=== PATIENT | female | born 1950 | race Caucasian/White ===

== ENCOUNTER 2018-04-23 12:49 | Inpatient (IN) | payer MEDICARE ==
[~2018-04-23] VITALS: Ht 157.5 cm; Wt 106.6 kg
--- NOTE | ~2018-04-23 | D ---
[facility] [address] [place] [address] DISCHARGE SUMMARY Name: BERNYLUAN DOUGIE Room: [address] IN .R.#: [id number] Admission: 04/23/18 Attend Phys: Kitty Camara DO Discharge: Date of : 50 Report #: [id number] THIS REPORT FOR: //name// CC: Antoine Camara DATE OF SERVICE: 05/02/2018 Fracture of the right femur with known metastatic cancerous process. SUBJECTIVE: This is a 67-year-old female who was admitted to inpatient rehabilitation to facilitate safe discharge home, status post right femur fracture with known cancerous process and metastatic cancer who did well, progressed to a modified independent level of function prior to discharge home. MEDICATIONS: Reviewed and reconciled by myself. FOLLOWUP: Primary care physician within one week. Oncology, [facility] as previously scheduled. Notifications for physician were given. DIET: Regular diet. Fall precautions, front-wheeled walker for ambulation and weightbearing as tolerated on right lower extremity. DISCHARGE PHYSICAL EXAMINATION: GENERAL: Alert, oriented, no apparent distress. VITAL SIGNS: Reviewed and are stable. HEENT: Head atraumatic, normocephalic. Pupils equal, round, reactive. ABDOMEN: Soft, nontender, nondistended. NEUROLOGIC: Cranial nerves 2-12 are grossly intact. No focal neuro deficits, 5/5 strength in bilateral upper and lower extremities. SKIN: Warm, dry. No rashes or lesions noted. By: [id number] Camara DO /roberto
--- NOTE | ~2018-04-23 | H ---
[place] [address] HISTORY AND PHYSICAL Name: LUAN ARRIETA Room: [address] IN ..#: [id number] Admission: 04/23/18 Attend Phys: Kitty Camara DO Discharge: Date of : 50 Report #: [id number] THIS REPORT FOR: //name// CC: Antoine Camara DATE OF SERVICE: 04/23/2018 [facility] CODE: 8.9. HISTORY OF PRESENT ILLNESS: This is a 67-year-old female admitted to inpatient rehabilitation to facilitate safe discharge home, status post acute hospitalization due to a right femur fracture, onset 04/18/2018, with surgical date 04/18/2018. She had a pathological right distal femur fracture, status post ORIF, with poor results and recurrent right distal femur fracture post-radical resection of the right distal femur due to pain and nonunion. The distal femur replacement with a prosthetic was completed on 04/18/2018. She was previously living at home with family members, modified independent to independent with ADLs, mobility was modified independent. Multiple medical comorbidities. No significant changes since preadmission screening. Previous level of function was modified independent to independent with activities of daily living. Current level of function is minimum to moderate assistance of one depending on therapy, activity and time of day, if she is ambulating 2 feet with front-wheeled walker. Decreased heel strike, weightbearing as tolerated on the right lower extremity. Estimated length of stay is 12-14 days, with discharge disposition to the home setting where she has family including her [id number] that can help her. Again, no significant changes since preadmission screening. PAST MEDICAL HISTORY: Bone lesion, hypothyroid, bone metastasis, anemia with a hemoglobin of 7.2. Hip fracture, post ORIF, with revision. Right femur fracture, liver metastasis, hypertension, neuropathy, bilateral lower extremity. Nonpolyposis, colorectal cancer, small cell cancer, neoplasm of the uterus, arthritis. PAST SURGICAL HISTORY: Hip fracture and right distal femur ORIF. ALLERGIES: SULFA, LATEX, CODEINE, GABAPENTIN. Weightbearing as tolerated on right lower extremity. FAMILY HISTORY: [place] [address] HISTORY AND PHYSICAL Name: LUAN ARRIETA Room: [address] IN [facility].#: [id number] Admission: 04/23/18 Attend Phys: Kitty Camara DO Discharge: Date of : 50 Report #: [id number] SOCIAL HISTORY: No tobacco, alcohol or illicit drug use. REVIEW OF SYSTEMS: 14-point review of systems is done and is negative except as mentioned in HPI, specifically no fever, chest pain, shortness of breath, abdominal pain or distention, change in bowel or change in bladder. PHYSICAL EXAMINATION: GENERAL: Alert, oriented, in no apparent distress. VITAL SIGNS: Reviewed and are stable. She is up in the chair, eating lunch. She does have family in the room. HEENT: Head atraumatic, normocephalic. Pupils equal, round, reactive. ABDOMEN: Soft, nontender, nondistended. NEUROLOGIC: Cranial nerves 2-12 are grossly intact. No focal neuro deficits, 5/5 strength in bilateral upper and lower extremities. SKIN: Warm and dry. No rashes or lesions noted. ASSESSMENT: 1. Right femur fracture, status post resection and revision, open reduction internal fixation of the distal femur on 04/18/2018. 2. Bilateral lower extremity neuropathy. 3. Multiple cancers including bone metastasis. 4. Alterations in activities of daily living, requiring acute therapies. PLAN: 1. Admission to inpatient rehabilitation. 2. PT, OT, speech, language, case management, nursing and HIMS to make evaluations and recommendations. 3. Plan of care is pending, and we will team her weekly. 4. Weightbearing as tolerated, right lower extremity. We will also investigate if she needs a CPM. By: [id number] Camara DO /roberto
--- NOTE | ~2018-04-23 | PLAN ---
[address] [address] REHAB UNIT PLAN OF CARE Name: BERNYLUAN DOUGIE Room: [address] IN ..#: [id number] Admission: 04/23/18 Attend Phys: Kitty Camara, DO Discharge: Date of : 50 Report #: [id number] THIS REPORT FOR: //name// CC: Antoine Camara This is a 67-year-old female admitted to inpatient rehabilitation to facilitate safe discharge home, status post acute hospitalization on 04/18/2018 for resection and revision of a right distal femur fracture due to pain and nonunion of a distal femur replacement and prosthesis on 04/18/2018. She is weightbearing as tolerated on the right lower extremity, unsure at this time if she is going to utilize the CPM for range of motion, multiple medical comorbidities requiring acute daily medical care as well as intensive therapies. MEDICAL PROGNOSIS: Good. REHABILITATION PROGNOSIS: Good. Estimated length of stay is 10-12 days with discharge disposition to the home setting where she has supportive family, accessible house and a [id number] that can provide around the clock care. Previous level of function, modified independent to independent with ADLs. Current level of function is modified independent to min assistance of one depending on therapy, activity and time of day. Ambulation is about 2 feet, slow decreased heel strike. Physical Therapy will see the patient 60-90 minutes per day, 5 days per week, working on upper and lower body strength, balance, coordination, navigation. Occupational Therapy will work with the patient 60-90 minutes per day, 5 days per week, working on upper and lower body strength, balance, coordination, navigation, bathing, dressing, and toileting. Speech and Language Pathology will work with the patient 30-90 minutes per day, 5 days per week, working on cognition, memory strategies for executive function. This is an overall plan of care, may change from time to time. We will team weekly and make changes to plan. By: [id number] Camara DO /roberto
[2018-04-23] MEDS ORDERED: COLACE100 MG PO (13:47)
[2018-04-23] MEDS ORDERED: OXYCODONE HCL15 MG PO (13:50)
[2018-04-23] MEDS ORDERED: ASPIR 8181 MG PO (13:51)
[2018-04-23] MEDS ORDERED: TYLENOL EXTRA500 MG PO (13:52)
[2018-04-23] MEDS ORDERED: VITAMIN D2000 UNIT PO (13:53)
[2018-04-23] MEDS ORDERED: AMITRIPTYLINE H25 M2 PO (13:53)
[2018-04-23] MEDS ORDERED: ALLERGY RELIEF180 MG PO (13:54)
[2018-04-23] MEDS ORDERED: PROBIOTIC1 EAC1 PO (13:55)
[2018-04-23] MEDS ORDERED: SYNTHROID50 MCG PO (13:56)
[2018-04-23] MEDS ORDERED: OMEPRAZOLE 20 M20 M1 PO (13:57)
[2018-04-23] MEDS ORDERED: MIRALAX17 GM PO (14:00)
[2018-04-23] MEDS ORDERED: UNICOMPLEX M TA1 TA1 PO (14:02)
[2018-04-23] MEDS ORDERED: B COMPLEX1 EACH PO (14:02)
[2018-04-23 19:30] VITALS: BP 147/64
[2018-04-23] MEDS ORDERED: MORPHINE SULFAT15 M3 PO (19:43)
[2018-04-23] MEDS ORDERED: ALLEGRA ALLERG180 MG PO (19:47)
--- NOTE | 2018-04-24 03:09 | NUR ---
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
[2018-04-24 04:32] LABS: HEMATOCRIT 24.3 % (37.0-47.0); HEMOGLOBIN 8.4 gm/dL (12.0-15.0); MCH 32.8 pg (26.0-34.0); MCHC 34.5 g/dL (28.0-37.0); MCV 95.1 fL (80.0-100.0); MPV 8.4 fl. (7.2-11.1); RBC 2.56 mil/uL (4.20-5.00); RDW-CV 15.9 % (10.5-14.5); WBC 3.6 thou/uL (4.0-11.0)
[2018-04-24 04:42] LABS: CALCIUM 8.6 mg/dL (8.5-10.1); POTASSIUM 3.8 mmol/L (3.5-5.1)
--- NOTE | 2018-04-24 05:21 | NUR ---
SLEEPING SINCE 0000-04/24-SUN.SLEPT GOOD ALL NIGHT.TOOK ALL DRY CEREAL [facility]ERRIOS HS SNACK.BRP X1.USED BSC X2.ASSIST TO LIFT RIGHT LE INTO & OUT OF BED DURING TRANSFERS.
[2018-04-24 08:19] VITALS: BP 124/58
--- NOTE | 2018-04-24 10:42 | NUR ---
Nutrition: Consult received for new admit. Pt on regular diet, unsure of po intake today. MVI, probiotic. Admitted with Rt distal femur FX. Wt: 237#. Consider Low risk at this time. Will follow weekly for po intake, wt, labs.
--- NOTE | 2018-04-24 16:39 | NUR ---
SW, Dr Camara and med student Sander met with pt to review team conference summary and plan for pt to remain on rehab unit for another week with plan to reteam next Sunday. SW met again with pt to complete initial assessment, introduce self, and SW role on inpt rehab unit. Pt lives with her brother in law and has his support 25/09 if needed however pt is hopeful to be more independent at dc. Pt has grab bars, standard RW and a rollator. Pt has hx with services but does not recall the name of the agency. Pt did not have any questions or concerns at this time. SW to continue to follow to assist with safe dc planning.
--- NOTE | 2018-04-24 19:03 | NUR ---
PT ALERT AND ORIENTED X 4. RECEIVED MORPHINE AND TYLENOL FOR RIGHT LEG PAIN. DRESSING ON RIGHT LEG- C/D/I. PARTICIPATED WITH THERAPIES DURING DAY. UP WITH ASSIST X 1 WITH WALKER AND GAIT BELT. HOURLY ROUNDS MAINTAINED. DIET CHANGED TO MECHANICAL SOFT/ GROUND DIET. CALL LIGHT WITH WITHIN REACH.
[2018-04-24 19:24] VITALS: BP 126/59
[2018-04-25 04:25] LABS: HEMATOCRIT 24.8 % (37.0-47.0); HEMOGLOBIN 8.5 gm/dL (12.0-15.0); MCH 32.8 pg (26.0-34.0); MCHC 34.3 g/dL (28.0-37.0); MCV 95.6 fL (80.0-100.0); MPV 8.3 fl. (7.2-11.1); RBC 2.59 mil/uL (4.20-5.00); RDW-CV 15.9 % (10.5-14.5); WBC 3.9 thou/uL (4.0-11.0)
[2018-04-25 04:42] LABS: APTT 29.7 Seconds (25.0-31.3); INR 0.9; PROTIME 9.4 Seconds (9.20-11.50)
[2018-04-25 04:44] LABS: ALBUMIN 2.8 g/dL (3.4-5.0); CALCIUM 8.6 mg/dL (8.5-10.1); CREATININE 0.9 mg/dL (0.6-1.3); POTASSIUM 3.8 mmol/L (3.5-5.1); TOTAL BILIRUBIN 0.3 mg/dL (<0.1-1.0); TOTAL PROTEIN 6.5 g/dL (6.4-8.2)
--- NOTE | 2018-04-25 05:11 | NUR ---
ASSUMED PT CARE AT 1930. PT ALERT AND ORIENTED X4, POLITE AND COOPERATIVE WITH CARES. S/P RADICAL RESECTION AND REPLACEMENT OF RIGHT DISTAL PROSTHESIS. PT UP WITH ONE, GAIT BELT AND WALKER TO [facility] TO VOID. PT NEEDS ASSIST LIFTING RIGHT LEG INTO BED. WBAT TO RLE. PRN TYLENOL, MORPHINE AND ELAVIL AT HS PER PT REQUEST. BED ALARM ON FOR SAFETY. WEARS ONLY LEFT SCD. PT SLEPT WELL OVERNIGHT. NO S/S PAIN OR DISTRESS. USES CALL LIGHT APPROPRIATELY. CALL LIGHT AND FREQUENTLY USED ITEMS WITHIN REACH. HOURLY ROUNDING IN PROGRESS, WILL CONTINUE TO MONITOR.
[2018-04-25 08:00] VITALS: BP 125/59
--- NOTE | 2018-04-25 19:36 | NUR ---
I ASSUMED CARE OF THE PATIENT AT 0700. SHE IS ALERT AND ORIENTED X4 AND IS UP WITH ONE AND A WALKER/GB. HOURLY ROUNDING WAS COMPLETED AND PATIENT NEEDS ARE MET. PAIN IS MANAGED WITH PRN MEDS. HER PORT A CATH WAS ACCESSED TO INFUSE IV IRON. BED IS IN THE LOW LOCKED POSITION AND CALL LIGHT IS IN REACH. BED ALARM AND CHAIR ALARM ARE ON. WILL CONTINUE TO MONITOR.
[2018-04-25 20:23] VITALS: BP 128/55
--- NOTE | 2018-04-26 05:38 | NUR ---
ASSUMED PT CARE AT 1930. PT ALERT AND ORIENTED X4, POLIE AND COOPERATIVE WITH CARES. S/P RADICAL RESECTION AND REPLACEMENT OF RIGHT DISTAL PROSTHESIS. DRESSING TO RIGHT LEG C/D/I. PT UP WITH ONE, GAIT BELT AND WALKER TO [facility] TO VOID. PT NEEDS ASSIST LIFTING RIGHT LEG INTO BED. WBAT TO RLE. PRN TYLENOL AND MORPHINE FOR PAIN. BED ALARM ON FOR SAFETY. WEARS ONLY LEFT SCD. SLEPT WELL OVERNIGHT. USES CALL LIGHT APPROPRIATELY. CALL LIGHT AND FREQUENTLY USED ITEMS WITHIN REACH, HOURLY ROUNDING IN PROGRESS, WILL CONTINUE TO MONITOR.
[2018-04-26 11:11] VITALS: BP 122/63
--- NOTE | 2018-04-26 16:07 | NUR ---
PATIENT AMBULATING IN HALLWAY EARLIER WITH THERAPY. BM THIS AFTERNOON. PAIN MEDS ORDERED. NO FURTHER COMPLAINTS.
[2018-04-26 20:00] VITALS: BP 115/54
--- NOTE | 2018-04-27 05:35 | NUR ---
ASSUMED PT CARE AT 1930. PT ALERT AND ORIENTED X4, POLITE AND COOPERATIVE WITH CARES. DRESSING TO RIGHT LEG C/D/I. PT UP WITH ONE, GAIT BELT AND WALKER TO BS TO VOID. PT NEEDS ASSIST LIFTING RIGHT LEG INTO BED. WBAT TO RLE. PRN TYLENOL AND MORPHINE FOR PAIN. BED ALARM ON FOR SAFETY. WEARS ONLY LEFT SCD. SLEPT WELL OVERNIGHT. PORT FLUSHED WITHOUT DIFFICULTY. USES CALL LIGHT APPROPRIATELY. CALL LIGHT AND FREQUENTLY USED ITEMS WITHIN REACH. HOURLY ROUNDING IN PROGRESS, WILL CONTINUE TO MONITOR.
[2018-04-27 08:06] VITALS: BP 122/60
--- NOTE | 2018-04-27 18:46 | NUR ---
PT VSS THIS SHIFT. PT TOLERATING DIET, RA, AND PAIN CONTROL THIS SHIFT. PT UP WITH 1 THIS SHIFT. PT TOLERATED IRON INFUSION THROUGH PORT WITH BLOOD RETURN PATENT THIS SHIFT. PT PORT DEACCESSED THIS SHIFT WITH NO COMPLICATIONS THIS SHIFT, HEPARIN PLACED IN PORT PRIOR TO DEACCESSING. PT ABOUT TO AMBULATE WITH ASSIST OF 1 WITH GAIT BELT AND WALKER. NO LABS DRAWN THIS SHIFT. NO BM THIS SHIFT.
--- NOTE | 2018-04-27 20:50 | NUR ---
RESTING QUIETLY IN BED AND WATCHING TV. DENIES DISCOMFORT. TOOK MEDICATIONS WHOLE WITH WATER. SNACK PROVIDED. DRESSING OVER PORT SITE ON RIGHT CHEST DRY/INTACT. PORT WAS DEACCESSED ON DAY SHIFT.
[2018-04-27 20:52] VITALS: BP 135/67
--- NOTE | 2018-04-28 05:41 | NUR ---
UP X ONE TO THE BATHROOM TO VOID. AMBULATES WITH SBA, GAITBELT, WALKER. DOES OWN HYGIENE AND CLOTHING ADJUSTMENTS. GAVE TYLENOL AND MORPHINE SULFATE AT 0130 PER REQUEST AT 0130 FOR COMPLAINT OF RIGHT LEG AND RIGHT KNEE PAIN WITH RELIEF. HOURLY ROUNDING IN PROGRESS.
[2018-04-28 08:36] VITALS: BP 120/60
--- NOTE | 2018-04-28 16:52 | NUR ---
PATIENT HAS BEEN AMBULATING WITH SUPERVISION IN ROOM AND TO MAIN DINNING AREA. LARGE BM TODAY. REQUESTED TO TAKE MIRLAX TWICE DAILY DUE TO HARD STOOL. DENIES ANY COMPLAINTS OF PAIN OR DISCOMFORT. ON ROOM AIR, LUNGS CTA. CONT. WITH PLAN OF CARE.
[2018-04-28 19:45] VITALS: BP 124/52
--- NOTE | 2018-04-28 20:10 | NUR ---
SITTING UP IN BED PLAYING SOLATAIRE. AMBULATED TO THE BATHROOM WITH SBA, GAITBELT, WALKER. DID OWN HYGIENE AND CLOTHING ADJUSTMENTS. PAIN MEDICATION GIVEN PER REQUEST FOR COMPLAINT IN PAIN IN BOTH KNEES AND RIGHT LEG. SNACK PROVIDED.
--- NOTE | 2018-04-29 06:04 | NUR ---
RESTED QUIETLY. NO FURTHER COMPLALINT OF PAIN. UP X ONE DURING THE NIGHT TO THE BATHROOM TO VOID. HOURLY ROUNDING IN PROGRESS.
[2018-04-29 08:20] VITALS: BP 131/62
[2018-04-29 19:45] VITALS: BP 120/53
--- NOTE | 2018-04-29 20:30 | NUR ---
AWAKENED FOR REASSESSMENT AND MEDICATION PASS. INITIALLY DENIED NEED FOR MEDICATION. AFTER RETURNING TO BED FROM AMBULATING TO THE BATHROOM AND BACK ASKED FOR PAIN MEDICATION RATED "5" IN RIGHT KNEE AND RIGHT LEG. AMBULATES WITH SBA, GAITBELT, WALKER. TOOK MEDICATIONS WHOLE WITH WATER. PAIN MEDICATION GIVEN PER REQUEST.
--- NOTE | 2018-04-30 05:20 | NUR ---
RESTED ON/OFF. INFORMED PATIENT OF PRN MELATONIN BUT PATIENT DECLINED STATING SHE WOULD BE ABLE TO GET BACK TO SLEEP. UP X ONE DURING THE NIGHT TO THE BATHROOM TO VOID. NO FURTHER COMPLAINT OF PAIN. HOURLY ROUNDING IN PROGRESS.
[2018-04-30 08:00] VITALS: BP 119/53
--- NOTE | 2018-04-30 15:22 | NUR ---
PT HAS PARTICIPATED WITH THERAPIES AND CALLS FOR ASSIST WITH AMBULATION. PT AMBULATES WITH WALKER,GAITBELT AND MIN ASSIST OF 1.PRN FOR PAIN GIVEN WITH GOOD EFFECT. PT HAS 2+ EDEMA TO RT.LEG BUT KEEPS LEG ELEVATED WHEN NOT WITH THERAPIES. DRESSING REMOVED TODAY WITH INCISION DRY AND INTACT WITH GLUE PRESENT.SKIN AROUND INCISION CLEANSED WITH WOUND CLEANSER FOR RELIEF OF MILD ITCHING.PT REPORTS VOIDING WELL AND HAVING BM WITHOUT PROBLEM.PT REMAINS ALERT AND ORIENTATED. HOURLY ROUNDING CONTINUES.
[2018-04-30 20:00] VITALS: BP 113/54
--- NOTE | 2018-05-01 01:48 | NUR ---
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
[2018-05-01 03:51] LABS: HEMATOCRIT 22.9 % (37.0-47.0); HEMOGLOBIN 7.9 gm/dL (12.0-15.0); MCHC 34.5 g/dL (28.0-37.0); MCV 95.5 fL (80.0-100.0); MPV 8.1 fl. (7.2-11.1); RBC 2.4 mil/uL (4.20-5.00); WBC 3.7 thou/uL (4.0-11.0)
[2018-05-01 04:06] LABS: CALCIUM 8.7 mg/dL (8.5-10.1)
--- NOTE | 2018-05-01 05:30 | NUR ---
SLEEPING SINCE 2224 & SLEPT GOOD ALL NIGHT.BRP W/ SBA X3.REFUSED HS SNACK.
[2018-05-01 07:30] VITALS: BP 121/51
--- NOTE | 2018-05-01 14:50 | NUR ---
SW and med student met with pt to review team conference summary and plan for pt to dc home with brother in law on Sunday. SW explained team discussed pt to be mod I in room and/or Sunday. Team recommending HH vs OP follow up at dc. Pt in agreement with plan. SW to continue to follow to assist with safe dc planning.
--- NOTE | 2018-05-01 18:58 | NUR ---
ASSUMED PT CARE REPORT RECEIVED FORM NURSE. PT IS ALLYSON COMAPLAINS OF PAIN. PAIN MEDICINE MARTIN. WORKED WITH PT/OT. OUT OF BED TO CHAIR WITH WALKER AND GAIT BELT. MEDS GIVEN,. PT REQUESTED THAT MIRALAX BE HELD UNTIL LATER TODAY. MIRALX GIVEN AT 1800. PT NOW IN CHAIR CALL LIGHT AT REACH. FIM DONE WILL CONTINUE TO MONITOR
[2018-05-01 20:31] VITALS: BP 108/49
--- NOTE | 2018-05-01 22:00 | NUR ---
SITTING UP IN BED AND PLAYING SOLATAIRE ON HOME COMPUTER. PAIN MEDICATION GIVEN PER REQUEST FOR COMPLAINT OF PAIN IN RIGHT KNEE AND RIGHT THIGH RATED "4". SLEEP MED ALSO GIVEN PER REQUEST.
--- NOTE | 2018-05-02 06:05 | NUR ---
RESTED QUIETLY. NO COMPLAINTS VOICED. HOURLY ROUNDING IN PROGRESS.
[2018-05-02 08:20] VITALS: BP 141/65
--- NOTE | 2018-05-02 16:58 | NUR ---
PT VSS THIS SHIFT, TOLERATING DIET, RA, AND BEING MOD I IN THE ROOM THIS SHIFT. PT R LEG SURGICAL INCISION IS MIRIAN AT THIS TIME WITH NO COMPLICATIONS. PAIN CONTROL WELL MANAGED THIS SHIFT WITH THE PT APPROPRIATELY CALLING OUT FOR MEDICATIONS NEEDED. HOURLY ROUNDING MAINTAINED THIS SHIFT. WILL CONTINUE TO MONITOR AND ASSESS.
[2018-05-02 20:22] VITALS: BP 130/62
--- NOTE | 2018-05-03 05:15 | NUR ---
ASSUMED PT CARE AT 1930. PT ALERT AND ORIENTED X4, POLITE AND COOPERATIVE WITH CARES. PT IS MOD I IN ROOM. SURGICAL INCISION TO LEFT LEG IS LOG HAUL OPERATOR, NO S/S OF INFECTION. PRN PAIN MEDICATION AND SLEEP MEDICATION AT HS. PT TO DISCHARGE TO HOME TODAY. USES CALL LIGHT APPROPRIATELY. HOURLY ROUNDING IN PROGRESS, WILL CONTINUE TO MONITOR.
[2018-05-03 08:19] VITALS: BP 117/52
[2018-05-03 10:34] VITALS: BP 117/52
[2018-05-03 12:00] VITALS: BP 117/52
[2018-05-03] MEDS ORDERED: SYNTHROID88 MCG PO (14:09)
--- NOTE | 2018-05-03 14:20 | NUR ---
ASSUMMED CARE OF PT AT 0730, PT ALERT AND ORIENTED, PT MOD I IN ROOM AND DOES WELL, MEDICATED PER ORDER FOR PAIN, EDEMA IN BILATERAL LOWER EXTREMITIES, ELEVATED, TAKING FOOD AND FLUIDS WELL, PT PARTICIPATED IN ALL THERAPIES, HOURLY ROUNDING COMPLETED, ORDERS OBTAINED FOR DISCHARGE, PT EDUCATED ON FOLLOW UP APPTS, WHEN TO CALL PHYSICIAN, MEDICATIONS, HOME HEALTH, FALL PRECAUTIONS, QUESTIONS ANSWERED, PT DISCHARGED TO MAIN ENTRANCE WITH BELONGINGS.
--- NOTE | 2018-05-03 14:29 | NUR ---
PREPARATION SUPERVISOR FREEZING SPOKE TO THE PATIENT TO DISCUSS DISCHARGE PLANNING NEEDS, AND HER D/C TODAY HOME WITH HH. PATIENT IN AGREEMENT AND REQUEST HH WITH [facility]. D/C WASTEWATER PROJECT MANAGER INFORMED [facility] OF THE HH REFERRAL, AND FAXED THE PATIENTS D/C ORDERS. [facility] TO CONTACT THE PATIENT TO ARRANGE VISIT. CM WILL REMAIN AVIALABEL TO ASSIST AND FOLLLOW NEEDED.
== END 2018-05-03 14:00 | disposition home health service (06) | DRG 543 ==
LOC: M.REH 12:49
PROVIDERS: Family Medicine; ADMIT Physical Medicine & Rehabilitation
DX: M84.551A Pathological fracture in neoplastic disease, right femur, initial encounter for fracture (principal); C19 Malignant neoplasm of rectosigmoid junction; C79.51 Secondary malignant neoplasm of bone; D63.8 Anemia in other chronic diseases classified elsewhere; D50.9 Iron deficiency anemia, unspecified; I10 Essential (primary) hypertension; E03.9 Hypothyroidism, unspecified; M19.90 Unspecified osteoarthritis, unspecified site; G62.9 Polyneuropathy, unspecified; Z88.2 Allergy status to sulfonamides; Z88.6 Allergy status to analgesic agent; Z88.8 Allergy status to other drugs, medicaments and biological substances; Z92.21 Personal history of antineoplastic chemotherapy; Z91.040 Latex allergy status; Z90.710 Acquired absence of both cervix and uterus; Z85.42 Personal history of malignant neoplasm of other parts of uterus; Z80.0 Family history of malignant neoplasm of digestive organs; Z80.8 Family history of malignant neoplasm of other organs or systems

== ENCOUNTER 2020-06-20 08:41 | Emergency (ER) | payer MEDICARE ==
[~2020-06-20] VITALS: Ht 165.1 cm; Wt 120.3 kg
[~2020-06-20 08:41] MED LIST: ALLEGRA ALLERG180 MG PO; ALLERGY RELIEF180 MG PO; AMITRIPTYLINE H25 M2 PO; ASPIR 8181 MG PO; B COMPLEX1 EACH PO; COLACE100 MG PO; MIRALAX17 GM PO; MORPHINE SULFAT15 M3 PO; OMEPRAZOLE 20 M20 M1 PO; OXYCODONE HCL15 MG PO; PROBIOTIC1 EAC1 PO; SYNTHROID50 MCG PO; SYNTHROID88 MCG PO; TYLENOL EXTRA500 MG PO; UNICOMPLEX M TA1 TA1 PO; VITAMIN D2000 UNIT PO
[2020-06-20 09:08] LABS: ABSOLUTE BASOPHILS 0.1 thou/uL (0.0-0.2); ABSOLUTE EOSINOPHILS 0.2 thou/uL (0.0-0.7); ABSOLUTE LYMPHOCYTES 2.9 thou/uL (0.8-5.3); ABSOLUTE MONOCYTES 0.6 thou/uL (0.0-1.2); ABSOLUTE NEUTROPHILS 5.4 thou/uL (1.6-8.1); BASOPHILS 0.8 %; EOSINOPHILS 1.9 %; HEMOGLOBIN 12.3 gm/dL (12.0-15.0); LYMPHOCYTES 31.9 %; MCH 31.6 pg (26.0-34.0); MCHC 33.3 g/dL (28.0-37.0); MCV 94.9 fL (80.0-100.0); MONOCYTES 6.4 %; MPV 8.8 fl. (7.2-11.1); NUCLEATED RBCS 0 /100WBC; PLATELET COUNT* 178 thou/uL (150-400); RDW-CV 13.4 % (10.5-14.5); WBC 9.1 thou/uL (4.0-11.0)
[2020-06-20 09:16] LABS: URINE BILIRUBIN NEGATIVE (Negative); URINE BLOOD TRACE (Negative); URINE CLARITY CLEAR; URINE COLOR YELLOW; URINE GLUCOSE-RANDOM NEGATIVE (Negative); URINE KETONES NEGATIVE (Negative); URINE LEUKOCYTES 1+ (Negative); URINE NITRITE NEGATIVE (Negative); URINE PROTEIN NEGATIVE (Negative); URINE UROBILINOGEN 0.2 E.U./dl (0.2-1.0)
[2020-06-20 09:30] LABS: CRYSTALS None Seen /LPF (None Seen); HYALINE CASTS 4-10 Moderate /LPF (None Seen); MUCUS None Seen strn/LPF (None Seen); SQUAMOUS 4-10 Moderate /LPF (0-3)
[2020-06-20 09:32] LABS: BACTERIA 1-9 Few /HPF (None Seen); URINE RBC 3-10 Few /HPF (0-2); URINE WBC 0-5 Rare /HPF (0-5)
[2020-06-20 09:33] LABS: CALCIUM 8.7 mg/dL (8.5-10.1); CREATININE 1.1 mg/dL (0.6-1.3); POTASSIUM 4.1 mmol/L (3.5-5.1)
[2020-06-20 09:38] LABS: ALBUMIN 4.2 g/dL (3.4-5.0); TOTAL BILIRUBIN 0.3 mg/dL (<0.1-1.0); TOTAL PROTEIN 7.9 g/dL (6.4-8.2)
[2020-06-20] MEDS ORDERED: KEFLEX750 MG PO (11:03)
[2020-06-20 11:27] VITALS: BP 146/62
--- NOTE | 2020-06-21 14:42 | EKG ---
[place] [address] ELECTROCARDIOGRAM REPORT Name: LUAN ARRIETA Room: [facility]#: [id number] Admission: 06/20/20 Attend Phys: Discharge: 06/20/20 Date of : 50 Date of Service: 06/20/20 0847 Report #: [id number] THIS REPORT FOR: //name// [facility] ED Test Date: 2020-06-20 Test Time: 08:47:16 Pat Name: LUAN ARRIETA Department: Room: Gender: F Payroll Supervisor: : 1950 Requested By: Manish John Order Number: [id number] MD: Boone Gomez Measurements Intervals [place] Rate: 78 P: 60 SD: 186 QRS: 14 QRSD: 93 T: 23 QT: 405 QTc: 462 Interpretive Statements Sinus rhythm No previous ECG available for comparison Electronically Signed On 06-21-2020 14:42:23 CDT by Boone Gomez [email or web address] <ELECTRONICALLY SIGNED> By: Boone Gomez MD, [facility] 06/21/20 1442 Boone Gomez MD, FAC /EPI
== END 2020-06-20 11:35 | disposition home or self-care (01) ==
LOC: M.ERS 08:41
PROVIDERS: Emergency Medicine
DX: N30.90 Cystitis, unspecified without hematuria (principal); R42 Dizziness and giddiness; M19.90 Unspecified osteoarthritis, unspecified site; E03.9 Hypothyroidism, unspecified; Z85.42 Personal history of malignant neoplasm of other parts of uterus; Z85.048 Personal history of other malignant neoplasm of rectum, rectosigmoid junction, and anus; Z90.89 Acquired absence of other organs; Z90.710 Acquired absence of both cervix and uterus; Z86.2 Personal history of diseases of the blood and blood-forming organs and certain disorders involving the immune mechanism; Z91.040 Latex allergy status; Z88.5 Allergy status to narcotic agent; Z88.2 Allergy status to sulfonamides; W18.39XA Other fall on same level, initial encounter; Y93.89 Activity, other specified; Y92.89 Other specified places as the place of occurrence of the external cause; Y99.8 Other external cause status